=== PATIENT | male | born 2000 | race African-American/Black ===

== ENCOUNTER 2021-10-26 17:11 | Emergency (ER) | payer MEDICAID, OTHER ==
[~2021-10-26] VITALS: Ht 172.7 cm; Wt 81.0 kg
[2021-10-26] MEDS ORDERED: SODIUM CHLORIDE 0.9% 1,000 ML IV ONE (17:15)
[2021-10-26 17:44] VITALS: BP 127/66
[2021-10-26 18:03] LABS: BASOPHILS % 0.4 % (0.0-2.0); HEMATOCRIT. 41.8 % (42.0-52.0); HEMOGLOBIN. 14.1 g/dL (14.0-18.0); LYMPHOCYTES % 32.4 % (20.0-50.0); MEAN CORPUSCULAR HEMOGLOBIN 30.4 pg (28.0-32.0); MEAN CORPUSCULAR VOLUME 90.5 fL (80.0-94.0); MEAN PLATELET VOLUME 7.1 fl (7.4-10.4); MONOCYTES % 6.9 % (2.0-8.0); NEUTROPHILS % 57.3 % (40.0-76.0); PLATELET 272 x1000/uL (130-400); RED BLOOD CELL COUNT 4.62 mill/uL (4.7-6.1); RED CELL DISTRIBUTION WIDTH 13.3 % (11.6-14.6)
[2021-10-26 18:08] LABS: CHLORIDE 104 mEq/L (98-107)
[2021-10-26 18:17] LABS: ETHANOL BLOOD < 10 mg/dL
== END 2021-10-26 18:22 | disposition left against medical advice (07) ==
LOC: ER 17:11
DX: T40.711A Poisoning by cannabis, accidental (unintentional), initial encounter (principal); R55 Syncope and collapse; Y92.89 Other specified places as the place of occurrence of the external cause
CPT/HCPCS: 36415; 80053; 80307; 80320; 80329; 85025; 99283; J7030; G0480